=== PATIENT | female | born 1955 | race Caucasian/White ===

== ENCOUNTER 2016-06-06 20:58 | Emergency (ER) | payer BC ==
[2016-06-06 21:16] VITALS: BP 120/74
--- NOTE | 2016-06-06 22:30 | EDM.PDOC ---
ED HPI GENERAL MEDICAL PROBLEM - General Chief Complaint: Fever Stated Complaint: FLU Time Seen by Provider: 06/06/16 22:28 - History of Present Illness INITIAL COMMENTS - FREE TEXT/NARRATIVE: 60-year-old female presents to the emergency room concerned about having the flu. 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 The patient has developed fevers and generalized body aches all of today. She's had some relief of symptoms with using Aleve. She has a minimal cough no congestion. She denies nausea vomiting or diarrhea no abdominal pain. Past medical history is really noncontributory she's not on any medications, no prior surgeries except for eye surgery. Allergies include penicillin. Treatments PATIENT CARE REPRESENTATIVE: Reports: NSAIDS - Related Data Allergies Allergy/AdvReac Type Severity Reaction Status Date / Time Penicillins Allergy Hives Verified 06/06/16 21:13 Home Meds: Home Meds Oseltamivir [Tamiflu] 75 mg PO BID #9 cap 06/06/16 [Rx] Sertraline [Zoloft] 06/06/16 [History] Past Medical History - Past Health History Medical/Surgical History: Denies Medical/Surgical History Social & Family History - Family History Family Medical History: Noncontributory - Tobacco Use Smoking Status *Q: Unknown Ever Smoked ED ROS GENERAL - Review of Systems Review Of Systems: See Below Constitutional: Reports: fever, chills HEENT: Reports: No symptoms Respiratory: Reports: no symptoms Cardiovascular: Reports: No symptoms GI/Abdominal: Reports: No symptoms : Reports: no symptoms Musculoskeletal: Reports: other (generalized aches and pains) Skin: Reports: no symptoms Neurological: Reports: no symptoms ED EXAM, GENERAL - Physical Exam Exam: See Below Exam Limited By: No limitations General Appearance: alert, no apparent distress Eye Exam: bilateral eye: normal inspection Ears: normal external exam, normal canal, hearing grossly normal, normal TMs Nose: normal inspection, normal mucosa, no blood Throat/Mouth: Normal inspection, Normal lips, Normal teeth, Normal gums, Normal oropharynx, Normal voice, No airway compromise Head: atraumatic, normocephalic Neck: normal inspection, supple, non-tender, full range of motion. No: lymphadenopathy (L), lymphadenopathy (R) Respiratory/Chest: no respiratory distress, lungs clear, normal breath sounds Cardiovascular: regular rate, rhythm, no edema, no murmur GI/Abdominal: normal bowel sounds, soft, non tender Back Exam: normal inspection. No: CVA tenderness (L), CVA tenderness (R) Course - Vital Signs Last Recorded V/S: Last Vital Signs Temp 37.4 C 06/06/16 21:13 Pulse 72 06/06/16 21:13 Resp 18 06/06/16 21:13 BP 120/74 06/06/16 21:13 Pulse Ox 95 06/06/16 21:13 - Orders/Labs/Meds Orders: Active Orders 24 hr Category Date Time Status INFLUENZA A+B AG SCREEN [RM] Stat Lab 06/06/16 22:39 Uncollected Meds: Medications Discontinued Medications Generic Name Dose Route Start Last Admin Trade Name Latosha PRN Reason Stop Dose Admin Oseltamivir Phosphate 75 mg 06/06/16 22:57 Tamiflu PO 06/06/16 22:58 ONETIME ONE - Re-Assessments/Exams Free Text/Narrative Re-Assessment/Exam: 06/06/16 23:01 influenza A is positive discussed the risks and benefits of treatment the patient would like to be treated. Departure - Departure Time of Disposition: 23:02 Disposition: Home, Self-Care 01 Clinical Impression: Influenza A Prescriptions: Oseltamivir [Tamiflu] 75 mg PO BID #9 cap Forms: ED Department Discharge Additional Instructions: Return to the emergency room with any questions or problems or worsening symptoms. Start the Tamiflu tomorrow twice daily until all gone. Push fluids. Continue the Aleve as needed. Take the Aleve with food. - My Orders Last 24 Hours: My Active Orders 06/06/16 22:39 INFLUENZA A+B AG SCREEN [RM] Stat - Assessment/Plan Last 24 Hours: My Active Orders 06/06/16 22:39 INFLUENZA A+B AG SCREEN [RM] Stat
[2016-06-06] MEDS ORDERED: Oseltamivir 75 MG Cap PO ONE (22:57)
== END 2016-06-06 23:10 | disposition home or self-care (01) ==
LOC: JD.ED 20:58
DX: J10.1 Influenza due to other identified influenza virus with other respiratory manifestations (principal); Z88.0 Allergy status to penicillin
CPT/HCPCS: 87804; 99283; A9270

== ENCOUNTER 2022-04-06 17:07 | Emergency (ER) | payer MEDICARE, BC ==
[2022-04-06 19:55] VITALS: BP 150/88; PULSE 91
== END 2022-04-06 20:36 | disposition home or self-care (01) ==
LOC: JD.ED 17:07
DX: N39.0 Urinary tract infection, site not specified (principal); Z88.0 Allergy status to penicillin
CPT/HCPCS: 81001; 87086; 87088; 87186; 99283